=== PATIENT | female | born 1995 | race Caucasian/White ===

== ENCOUNTER → 2023-11-20 | Outpatient (CLI) | payer MEDICAID ==
[2023-11-20 14:49] LABS: Basophils % (A) 1 %; Eosinophils # (A) 0.1 k/uL (0-0.7); Eosinophils % (A) 2 %; HCT 40.4 % (34.0-46.0); HGB 13.3 gm/dL (11.4-16.0); Lymphocytes # (A) 1.3 k/uL (1.0-4.8); Lymphocytes % (A) 31 %; MCH 28.6 pg (25.0-35.0); MCHC 32.8 g/dL (31.0-37.0); MCV 87.1 fL (80.0-100.0); Mean Platelet Volume 10.6; Monocytes # (A) 0.2 k/uL (0-1.0); Monocytes % (A) 4 %; Neutrophils # (A) 2.5 k/uL (1.3-7.7); Neutrophils % (A) 61 %; Platelet Count 208 k/uL (150-450); RBC 4.64 m/uL (3.80-5.40); RDW 12.4 % (11.5-15.5); WBC 4.1 k/uL (3.8-10.6)
[2023-11-20 15:03] LABS: ALT 19 U/L (4-34); AST 25 U/L (14-36); African American GFR (CKD) >90 (>60 ml/min/1.73 sqM); Albumin 4.3 g/dL (3.5-5.0); Albumin/Globulin Ratio 1.7; Alkaline Phosphatase 52 U/L (38-126); Anion Gap 4 mmol/L; Blood Urea Nitrogen 13 mg/dL (7-17); C Reactive Protein <0.5 mg/dL (<1.0); Calcium 9.6 mg/dL (8.4-10.2); Carbon Dioxide 27 mmol/L (22-30); Chloride 107 mmol/L (98-107); Globulin 2.6 g/dL; Glucose 93 mg/dL (74-99); Non-African American GFR(CKD) >90 (>60 ml/min/1.73 sqM); Potassium 4.2 mmol/L (3.5-5.1); Sodium 138 mmol/L (137-145); Total Bilirubin 0.4 mg/dL (0.2-1.3); Total Protein 6.9 g/dL (6.3-8.2)
[2023-11-20 15:17] LABS: T4, Free (Free Thyroxine) 0.79 ng/dL (0.78-2.19)
[2023-11-20 22:27] LABS: Rheumatoid Factor, Qnt <15 IU/mL (0-15)
[2023-11-20 22:34] LABS: Thyroid Peroxidase Antibodies 9.8 U/mL (0.0-33.0)
[2023-11-21 03:55] LABS: Cyclic Citrull Pep IgG Unit <1.5 U/mL (<=3.9); Cyclic Citrullinated Pep IgG Negative
[2023-11-21 04:37] LABS: EBV - VCA IgM 18.2 U/mL (<36.0)
[2023-11-21 09:39] LABS: Erythrocyte Sedimentation Rate 8 mm/Hr (0-20)
== END | disposition home or self-care (01) ==
LOC: LABWHC1 14:20
PROVIDERS: ATTEND Family Medicine
DX: Z00.00 Encounter for general adult medical examination without abnormal findings (principal); B99.9 Unspecified infectious disease; A49.9 Bacterial infection, unspecified
CPT/HCPCS: 36415; 80053; 84439; 84443; 84481; 85025; 85652; 86038; 86140; 86200; 86376; 86431; 86665

== ENCOUNTER 2024-01-31 12:19 | Day surgery (SDC) | payer MEDICAID ==
--- NOTE | 2024-01-30 23:58 | HP ---
HISTORY AND PHYSICAL CHIEF COMPLAINT: Lesion on the right tonsil. HISTORY OF PRESENT ILLNESS: This patient is a pleasant 28-year-old female who was recently seen in my office complaining of having a sore/ulcer on the right tonsil. She states that it has been there for approximately 3 to 4 months. She is a nonsmoker and never has used tobacco products. The patient states that she occasionally has some pain referred into her right ear. The lesion does not interfere with her swallowing. At the time that she was seen in my office clinical examination of oropharynx reveals 2 to 3+ tonsillar hypertrophy and there is a prominent tonsillar cystic lesion located on the superior pole of the right tonsil. The left tonsil is completely unremarkable. It was recommend the patient undergo excision of this lesion under general anesthesia. ALLERGIES: Past medical history reveals that she has no known allergies to medications. MEDICATIONS: She is not currently on any medications. PAST MEDICAL HISTORY: There is no history of asthma, diabetes mellitus, or hypertension. REVIEW OF SYSTEMS: Unremarkable. PHYSICAL EXAMINATION: GENERAL: The patient is a pleasant 28-year-old female who was alert and cooperative. HEENT: The patient is normocephalic. Tympanic membranes are normal. Middle ear spaces are free of any fluid or infection. Pupils are equal, round, and reactive to light and accommodation. Extraocular movements within normal limits. Intranasal examination reveals [id number] septal deviation with compensatory hypertrophy of the inferior turbinates and a moderate amount of mucus on the mucous membranes and draining down the posterior pharynx. Examination of the oropharynx reveals 2 to 3+ tonsillar hypertrophy and a yellow, well-circumscribed, cystic-appearing lesion on the superior pole of the right tonsil. NECK: Palpation of the neck is negative for any neck masses or lymphadenopathy. The remainder of the head and neck exam are within normal limits. CHEST: Both lung valdes are clear to percussion and auscultation. CARDIOVASCULAR: The patient is in regular sinus rhythm. S1 and S2 are present without evidence of any murmurs, S3s, or S4s. Peripheral pulses are bilaterally symmetrical. ABDOMEN: There is no evidence any masses, megaly, or tenderness. The abdomen is soft. SKIN: Unremarkable. MUSCULOSKELETAL: Within normal limits. NEUROLOGICAL: Within normal limits. PELVIC AND RECTAL: Deferred at this time because the patient has this done on a regular basis at her family physician's office. ASSESSMENT: Lesion of the right tonsil, right tonsillar cyst. PLAN: The patient is scheduled to undergo excision of lesion of the right tonsil under general anesthesia. Attention RNs in the pre-surgical area, I have ordered for this patient to receive 1000 mg of Ofirmev IV to be given once an intravenous line has been established. I have also ordered for her to receive 3 g of Ancef IV to be given once an intravenous line has been established. If the pharmacy department sends a different pre-surgical prophylactic antibiotic to the pre-surgical area for this patient, please cancel that order and return the medication to the pharmacy department. Also make sure that the patient's account is credited appropriately. I have discussed the risks, benefits and alternative therapies for the above-mentioned procedure and for both sedation/analgesia as well as necessary blood product administration, if indicated, as they pertain to this patient. The patient has indicated her understanding and acceptance of the risks and procedures discussed. MMLBL / MARCUS: [id number] /
[~2024-01-31 12:19] MED LIST: MIDAZOLAM 2 MG/2 ML VIAL IV PRN; Pre Op ABX Message 1 EACH MISC MISCELLANE ONE
[2024-01-31] MEDS: IV FLUID CONTINUATION 1,000 ML IV ONE ×2 (12:33→14:40)
[2024-01-31 12:45] VITALS: RESP 16
[2024-01-31 12:56] LABS: Glucose,Whole Blood 95 mg/dL (70-110)
[2024-01-31] MEDS: ONDANSETRON 4 MG/2 ML VIAL IVP ONE (13:01)
[2024-01-31] MEDS: DEXAMETHASONE SOD PHOSPHATE 4 MG/ML 1 ML VIAL IV ONE (13:01)
[2024-01-31] MEDS: ACETAMINOPHEN IV (For NPO) 1,000 MG in EMPTY BAG 1 BAG IVPB ONE (13:02)
[2024-01-31] MEDS: SCOPOLAMINE 1 MG/72 HR PATCH TRANSDERM ONE (13:02)
[2024-01-31] MEDS: LACTATED RINGERS 1,000 ML IV SCH (13:03)
[2024-01-31] MEDS ORDERED: ceFAZolin 3 GM in SODIUM CHLORIDE 0.9% 100 ML IVPB ONE (13:25)
[2024-01-31] MEDS ORDERED: fentaNYL (PF) 50 MCG/ML 2 ML AMP ONE (13:50)
[2024-01-31] MEDS ORDERED: LIDOCAINE 1% INJ 10MG/ML (20 ML MDV) ONE (13:50)
[2024-01-31] MEDS ORDERED: PROPOFOL 10 MG/ML 20 ML VIAL IV ONE (13:50)
[2024-01-31] MEDS ORDERED: DEXAMETHASONE SOD PHOSPHATE 10 MG/ML 1 ML VIAL ONE (13:50)
[2024-01-31] MEDS ORDERED: MIDAZOLAM 2 MG/2 ML VIAL ONE (13:50)
[2024-01-31] MEDS ORDERED: SUCCINYLCHOLINE CHLORIDE 200 MG/10 ML VIAL IV ONE (13:50)
[2024-01-31] MEDS: BUPIVACAINE (PF) 0.5% 30 ML VIAL SQ ONE ×2 (14:17)
[2024-01-31] MEDS: HYDROmorphone 0.5 MG/0.5 ML SYRINGE IVP PRN (15:03)
[2024-01-31 15:33] VITALS: TEMP 97
[2024-01-31 16:12] VITALS: BP 124/72; PULSE 72
--- NOTE | 2024-01-31 20:01 | OP ---
OPERATIVE REPORT DATE OF SERVICE : PREOPERATIVE DIAGNOSIS: Right tonsillar cystic mass. POSTOPERATIVE DIAGNOSIS: Right tonsillar cystic mass, final pathology pending. ANESTHESIA: General. PROCEDURE PERFORMED: Excision of right tonsillar cystic mass. COMPLICATIONS: None. ESTIMATED BLOOD LOSS: Less than 2 mL. DESCRIPTION OF PROCEDURE: The patient was placed on the operating table in supine position. After uneventful induction and endotracheal intubation, satisfactory general anesthesia was obtained. Next, the patient was draped in usual and customary fashion. Following this, a #3 Sandip-Jean Carlos mouth gag was introduced into the oropharynx, expanded, and subsequently was suspended on a Alvarez stand. Next, the right tonsil was grasped with a pair of tonsillar forceps and pulled medially thus exposing the tonsillar cyst. Next, the cystic lesion was cored out using a sickle knife in the usual and customary fashion. The specimen was placed in formalin and sent to Pathology for permanent sectioning. Hemostasis was obtained using suction cautery. The right tonsil was subsequently infiltrated with approximately 2 to 3 mL of 0.25% Marcaine. At this point, the procedure was terminated. Estimated blood loss was approximately 2 to 4 mL. The patient tolerated the procedure well and was returned to recovery room in satisfactory condition. Final pathology is pending. MMODL / IJN: [id number] /
== END 2024-01-31 16:32 | disposition home or self-care (01) ==
LOC: OR 12:19
PROVIDERS: ATTEND Otolaryngology
DX: J35.1 Hypertrophy of tonsils (principal)
CPT/HCPCS: 81025; 42826; J2250; J0330; J1100 ×2; J2405; J2001; J3010; J0131; J2704; J1170; J0665; 88305

== ENCOUNTER 2024-03-10 16:52 | Emergency (ER) | payer OTHER | END 2024-03-10 19:18 | disposition home or self-care (01) | LOC: EC 16:52 | CPT/HCPCS: 36415; 86704; 86706; 86803; 87340; 87390; 99282 ==